=== PATIENT | male | born 1995 | race Caucasian/White ===

== ENCOUNTER 2016-06-15 18:12 | Observation (INO) | payer MEDICAID ==
[2016-06-15 18:35] VITALS: BMI 31.6
[2016-06-15 18:37] LABS: ALL NEG? NO
[2016-06-15 18:38] LABS: AUTOMATED BASOPHIL 0.5 % (0-2); AUTOMATED EOSINOPHIL 0.5 % (0-5); AUTOMATED LYMPH 17.9 % (17-44); AUTOMATED MONOCYTE 4.9 % (3-10); AUTOMATED NEUTROPHIL 76.2 % (45-76)
[2016-06-15 18:47] LABS: BLOOD UREA NITROGEN 8 MG/DL (9-20); CALCIUM 9.6 MG/DL (8.4-10.2); CALCULATED OSMOLALITY 272 MOs/Kg (270-290); CHLORIDE 101 mEq/L (98-107); ETOH-MGDL < 10 mg/dL; GLUCOSE 89 MG/DL (70-99); SODIUM LEVEL 143 mEq/L (137-146); TOTAL PROTEIN 8.1 G/DL (6.3-8.2)
[2016-06-15 18:47] LABS: MDMA* NEG (NEGATIVE); METHAMPHETAMINES NEG (NEGATIVE); OXYCODONE NEG (NEGATIVE)
[2016-06-15 18:52] LABS: LEUKOCYTES/URINE NEG (NEGATIVE); NITRITE/URINE NEG (NEGATIVE); RBC/URINE 0-2 (0-2); URINE OCCULT BLOOD NEG (NEG/TRACE); WBC/URINE 0-2 (0-2)
[2016-06-15] MEDS ORDERED: NS 1,000 ML IV ONE (19:36)
[2016-06-15] MEDS ORDERED: LORAZEPAM 2 MG/ML VIAL IV ONE (19:36)
--- NOTE | 2016-06-15 19:36 | EDPRACDOC ---
- General Information Chief Complaint: Multiple Substance Withdrawal Time Seen by Provider: 06/15/16 19:33 Information Source: Patient Mode of Arrival: Car Home Medications: Home Medications No Home Medications 06/15/16 Allergies/Adverse Reactions: Allergies Allergy/AdvReac Type Severity Reaction Status Date / Time codeine [Codeine] Allergy Severe Hives* Verified 06/15/16 18:54 Penicillins Allergy Severe Hives* Verified 06/15/16 18:54 - History of Present Illness Onset: ongoing HPI: PATIENT INITIALLY PRESENTS WITH COMPLAINT OF WANTING DETOX. NOW PATIENT STATES HE FEELS SUICIDAL AND HAS CONSIDERED KILLING HIMSELF Reason for Seeking Treatment: Self-referral Presents With: Reports: Suicidal Ideation Expresses: Reports: Suicidal Intent Stressors: Reports: Relationships Relevant History: Reports: Depression Medication Compliance: No Tetanus Up To Date?: Yes Able to Care for Self: Yes Able to Control Self: No Associated Signs and Symptoms: Reports: Cocaine, Depression ED Past Medical History - History Reviewed Yes Nurses notes reviewed and agree except as marked Travel Outside of [place] in the Last 3 Months?: No - Patient Medical History Respiratory History: Reports: Asthma (CHILDHOOD) Psychological History: Reports: Depression, Substance Use Disorder Additional Past Medical History: DEPRESSION Surgical History: Reports: Tonsillectomy/Adnoidectomy (ADNOIDS ONLY) - Social Medical History Smoking Status: Heavy tobacco smoker (5 or more cigarettes/day or daily pipe/ cigar) Social History: Reports: Cocaine Use, Marijuana Use, Substance Use Disorder ETOH: Abuse EDM Review of Systems - Review of Systems ROS Negative Except as Marked: Yes All systems reviewed and were negative except as marked Constitutional: No Symptoms Reported. negative: Fever, Chills, Weakness, Fatigue, Loss of Appetite Eyes: No Symptoms Reported. negative: Redness, Blurred Vision, Double Vision, Discharge, Pain, Light Sensitive, Photophobia Ears: No Symptoms Reported. negative: Pain, Hearing Loss, Drainage, Ear Pulling Throat: No Symptoms Reported. negative: Pain, Swelling Nose: No Symptoms Reported. negative: Congestion, Bleeding, Discharge, Injection, Swelling, Deformity, Ecchymosis, Tender, Abrasion, Laceration Mouth: No Symptoms Reported. negative: Pain, Drooling Respiratory: No Symptoms Reported. negative: Cough, Brassy Cough, Barky Cough, Shortness of Breath, Wheezing, Hemoptysis Cardiovascular: No Symptoms Reported. negative: Chest Pain, Palpitations, Syncope, Edema, Orthopnea, PND, Skin Mottling, Cyanosis Gastrointestinal: No Symptoms Reported. negative: Pain, Constipation, Nausea, Vomiting, Diarrhea, Melena, Formula Intolerance Genitourinary: No Symptoms Reported. negative: Dysuria, Hematuria, Frequency, Discharge, Bleeding, Testicular Pain, Neurological: No Symptoms Reported. negative: Headache, Dizziness, Seizure, Numbness, Weakness, Speech Difficulty, Gait Difficulty Musculoskeletal: No Symptoms Reported. negative: Neck, Chestwall, Ribs, Back, Shoulder, Arm, Elbow, Forearm, Wrist, Hand, Pelvis, Hip, Femur, Knee, Leg, Ankle , Foot Integumentary: No Symptoms Reported. negative: Itching, Rash, Bruising, Wound Allergic/Immunologic: No Symptoms Reported. negative: Hives, Itching Hematologic: No Symptoms Reported. negative: Lymphadenopathy, Easy Bruising, Easy Bleeding Endocrine: No Symptoms Reported. negative: Weight Gain, Weight Loss Psychiatric: Depression, Suicidal. negative: Anxiety, Hallucinations, Insomnia - Physical Exam Constitutional: Alert (Awake), No apparent distress Oriented to: Time, Person, Place Last recorded Vital Signs: Last Vital Signs Temp 98.9 F 06/15/16 18:28 Pulse 98 06/15/16 19:29 Resp 20 06/15/16 19:29 BP 145/77 06/15/16 19:29 Pulse Ox 96 06/15/16 19:29 Oxygen Pulse Oxygen Saturation 96 O2 Device Room Air Oxygen Flow Rate Fraction of Inspired Oxygen ( FIO2) - HEENT Head: Normal ( normocephalic) Eye Exam: Normal (PERRL, EOMI, Sclera white) Oropharynx: Normal (Pharynx:Moist without exudate,Gums-no swelling) Tympanic Membrane: Normal ENT EAC: Normal TMJ: Normal Nose: No Symptoms Reported (septum midline) Neck: Normal (FROM, trachea at midline) - Respiratory/Cardiovascular Respiratory: Normal - CTA (BBS clear to auscultation without adventitious sounds ) Cardiovascular: Normal (RRR without murmur, gallop or rub) - GI Auscultation: Normal (NABS) Palpation: Normal (Soft,No rebound or guarding, non distended) Tenderness: Non tender Cardoso's Sign: Negative - Musculoskeletal Back: Normal (Non-Tender) Extremities: Normal (Normal tone, Pulses 2+ No cyanosis or edema, FROM) - Integumentary Skin: Normal, Warm, Dry Lymphatics: Normal (no adenopathy) - Neurologic Memory Impaired: Normal Motor Function: Normal (Normal tone, Pulses 2+ No cyanosis or edema, FROM) Cranial Nerve: Normal (CN II-X11 intact sensation, strength 5/5) Cerebellar: Normal Mood Description: Normal Perception: Normal - Results 06/15/16 18:28 06/15/16 18: WBC 13.0 xk/uL (3.8-10.8) H 06/15/16 18: RBC 5.46 xM/uL (4.70-6.10) 06/15/16 18: Hgb 15.9 g/dL (14.0-18.0) 06/15/16 18: Hct 46.0 % (42-52) 06/15/16 18: MCV 84 fL (80-94) 06/15/16 18: MCH 29.2 pg (27-32) 06/15/16 18: MCHC 34.6 g/dl (33-36) 06/15/16 18: RDW 13.4 % (11.5-14.5) 06/15/16 18: Plt Count 301 xk/uL (130-400) 06/15/16 18: MPV 8.0 fL (7.4-10.4) 06/15/16 18: Neut % (Auto) 76.2 % (45-76) H 06/15/16 18: Lymph % (Auto) 17.9 % (17-44) 06/15/16 18: [place] % (Auto) 4.9 % (3-10) 06/15/16 18: Eos % (Auto) 0.5 % (0-5) 06/15/16 18: Baso % (Auto) 0.5 % (0-2) 06/15/16 18: Absolute Neuts (auto) 9.88 xk/uL (1.7-8.2) H 06/15/16 18: Absolute Lymphs (auto) 2.21 xk/uL (0.65-4.75) 06/15/16 18: Sodium 143 mEq/L (137-146) 06/15/16 18:28 Potassium 3.6 mEq/L (3.5-5.1) 06/15/16 18:28 Chloride 101 mEq/L (98-107) 06/15/16 18:28 Carbon Dioxide 27 mMOL/L (22-33) 06/15/16 18:28 Anion Gap 19 mEq/L (8-16) H 06/15/16 18:28 BUN 8 MG/DL (9-20) L 06/15/16 18:28 Creatinine 0.80 MG/DL (0.66-1.25) 06/15/16 18:28 Estimated GFR (MDRD) > 60 mL/min (>=60) 06/15/16 18:28 Glucose 89 MG/DL (70-99) 06/15/16 18:28 Calculated Osmolality 272 MOs/Kg (270-290) 06/15/16 18:28 Calcium 9.6 MG/DL (8.4-10.2) 06/15/16 18:28 Total Bilirubin 0.7 MG/DL (0.2-1.3) 06/15/16 18:28 AST 28 IU/L (17-59) 06/15/16 18:28 ALT 46 IU/L (21-72) 06/15/16 18:28 Alkaline Phosphatase 98 IU/L (60-400) 06/15/16 18:28 Total Protein 8.1 G/DL (6.3-8.2) 06/15/16 18:28 Albumin 4.4 G/DL (3.5-5.0) 06/15/16 18:28 Urine Color Yellow 06/15/16 18:18 Urine Clarity Clear 06/15/16 18:18 Urine pH 8.0 (5.0-8.0) 06/15/16 18:18 Ur Specific [place] 1.010 (1.003-1.035) 06/15/16 18:18 Urine Protein 1+ (NEG/TRACE) H 06/15/16 18:18 Urine Glucose (UA) Neg (NEGATIVE) 06/15/16 18:18 Urine Ketones 1+ (NEGATIVE) H 06/15/16 18:18 Urine Occult Blood Neg (NEG/TRACE) 06/15/16 18:18 Urine Nitrite Neg (NEGATIVE) 06/15/16 18:18 Urine Bilirubin Neg (NEGATIVE) 06/15/16 18:18 Urine Urobilinogen 2 MG/DL (0-1) H 06/15/16 18:18 Ur Leukocyte Esterase Neg (NEGATIVE) 06/15/16 18:18 Urine RBC 0-2 (0-2) 06/15/16 18:18 Urine WBC 0-2 (0-2) 06/15/16 18:18 Ur Epithelial Cells Occ 06/15/16 18:18 Urine Bacteria Few (NEG/FEW) 06/15/16 18:18 Hyaline Casts 0-2 (0-2) 06/15/16 18:18 Urine Mucus Mod (NEG/OCC) H 06/15/16 18:18 Urine Opiates Screen Neg (NEGATIVE) 06/15/16 18:18 Ur Oxycodone Screen Neg (NEGATIVE) 06/15/16 18:18 Urine Methadone Screen Neg (NEGATIVE) 06/15/16 18:18 Ur Barbiturates Screen Neg (NEGATIVE) 06/15/16 18:18 Ur Tricyclics Screen Neg (NEGATIVE) 06/15/16 18:18 Ur Phencyclidine Scrn Neg (NEGATIVE) 06/15/16 18:18 Ur Amphetamines Screen Neg (NEGATIVE) 06/15/16 18:18 U Methamphetamines Scrn Neg (NEGATIVE) 06/15/16 18:18 Urine MDMA Screen Neg (NEGATIVE) 06/15/16 18:18 U Benzodiazepines Scrn Neg (NEGATIVE) 06/15/16 18:18 Urine Cocaine Screen *positive* (NEGATIVE) H 06/15/16 18:18 Ur THC Screen *positive* (NEGATIVE) H 06/15/16 18:18 Plasma/Serum Ethyl Alc % (<0.01) 06/15/16 18:28 Lab Results 06/15/16 06/15/16 06/15/16 18:28 18:28 18:18 WBC 13.0 H RBC 5.46 Hgb 15.9 Hct 46.0 MCV 84 MCH 29.2 MCHC 34.6 RDW 13.4 Plt Count 301 MPV 8.0 Neut % (Auto) 76.2 H Lymph % (Auto) 17.9 [place] % (Auto) 4.9 Eos % (Auto) 0.5 Baso % (Auto) 0.5 Absolute Neuts (auto) 9.88 H Absolute Lymphs (auto) 2.21 Sodium 143 Potassium 3.6 Chloride 101 Carbon Dioxide 27 Anion Gap 19 H BUN 8 L Creatinine 0.80 Estimated GFR (MDRD) > 60 Glucose 89 Calculated Osmolality 272 Calcium 9.6 Total Bilirubin 0.7 AST 28 ALT 46 Alkaline Phosphatase 98 Total Protein 8.1 Albumin 4.4 Urine Color Yellow Urine Clarity Clear Urine pH 8.0 Ur Specific [place] 1.010 Urine Protein 1+ H Urine Glucose (UA) Neg Urine Ketones 1+ H Urine Occult Blood Neg Urine Nitrite Neg Urine Bilirubin Neg Urine Urobilinogen 2 H Ur Leukocyte Esterase Neg Urine RBC 0-2 Urine WBC 0-2 Ur Epithelial Cells Occ Urine Bacteria Few Hyaline Casts 0-2 Urine Mucus Mod H Urine Opiates Screen Ur Oxycodone Screen Urine Methadone Screen Ur Barbiturates Screen Ur Tricyclics Screen Ur Phencyclidine Scrn Ur Amphetamines Screen U Methamphetamines Scrn Urine MDMA Screen U Benzodiazepines Scrn Urine Cocaine Screen Ur THC Screen Plasma/Serum Ethyl Alc 06/15/16 18:18 WBC RBC Hgb Hct MCV MCH MCHC RDW Plt Count MPV Neut % (Auto) Lymph % (Auto) [place] % (Auto) Eos % (Auto) Baso % (Auto) Absolute Neuts (auto) Absolute Lymphs (auto) Sodium Potassium Chloride Carbon Dioxide Anion Gap BUN Creatinine Estimated GFR (MDRD) Glucose Calculated Osmolality Calcium Total Bilirubin AST ALT Alkaline Phosphatase Total Protein Albumin Urine Color Urine Clarity Urine pH Ur Specific [place] Urine Protein Urine Glucose (UA) Urine Ketones Urine Occult Blood Urine Nitrite Urine Bilirubin Urine Urobilinogen Ur Leukocyte Esterase Urine RBC Urine WBC Ur Epithelial Cells Urine Bacteria Hyaline Casts Urine Mucus Urine Opiates Screen Neg Ur Oxycodone Screen Neg Urine Methadone Screen Neg Ur Barbiturates Screen Neg Ur Tricyclics Screen Neg Ur Phencyclidine Scrn Neg Ur Amphetamines Screen Neg U Methamphetamines Scrn Neg Urine MDMA Screen Neg U Benzodiazepines Scrn Neg Urine Cocaine Screen *positive* H Ur THC Screen *positive* H Plasma/Serum Ethyl Alc - Departure Instructions: Abuse of Alcohol (ED), Alcohol Withdrawal (ED)
[2016-06-15] MEDS ORDERED: TEMAZEPAM 15 MG CAP PO PRN (19:37)
[2016-06-15] MEDS ORDERED: ACETAMINOPHEN 325 MG/TAB TABLET PO PRN (19:37)
[2016-06-15] MEDS ORDERED: IBUPROFEN 400 MG TAB PO PRN (19:37)
[2016-06-15] MEDS ORDERED: LORAZEPAM 1 MG TAB PO PRN (19:37)
[2016-06-15] MEDS ORDERED: ONDANSETRON HCL 4 MG ODT TAB PO PRN (19:37)
[2016-06-15] MEDS ORDERED: MAGNESIUM HYDROXIDE 30 ML BOTTLE PO PRN (19:37)
[2016-06-15] MEDS ORDERED: Docusate Sodium 100 MG CAP PO PRN (19:37)
[2016-06-15] MEDS ORDERED: GUAIFENESIN 200 MG/10 ML UDC PO PRN (19:37)
[2016-06-15 21:51] VITALS: TEMP 98.2
[2016-06-16] MEDS ORDERED: NICOTINE 21 MG PATCH TOP SCH
--- NOTE | 2016-06-16 03:28 | TUDEPART ---
Discussion of OBS Stay: Pt evaluated by Mental Health, cleared for discharge home. Pt denies SI or HI. Disposition: Home Condition: Stable Instructions: Abuse of Alcohol (ED), Alcohol Withdrawal (ED), Polysubstance Abuse (ED) Education/Counseling Given To: Patient Education/Counseling Given Regarding: Diagnosis, Treatment, Follow Up Follow-up/Additional Instructions: Follow up with outpatient resources provided for detox. - Physical Exam Constitutional: Alert (Awake), No apparent distress Oriented to: Time, Person, Place Last recorded Vital Signs: Last Vital Signs Temp 98.2 F 06/15/16 23:30 Pulse 86 06/15/16 23:30 Resp 19 06/15/16 23:30 BP 134/67 06/15/16 23:30 Pulse Ox 97 06/15/16 23:30 Oxygen Pulse Oxygen Saturation 97 O2 Device Room Air Oxygen Flow Rate Fraction of Inspired Oxygen ( FIO2) - HEENT Head: Normal ( normocephalic) Eye Exam: Normal (PERRL, EOMI, Sclera white) Oropharynx: Normal (Pharynx:Moist without exudate,Gums-no swelling) Tympanic Membrane: Normal ENT EAC: Normal TMJ: Normal Nose: No Symptoms Reported (septum midline) - Respiratory/Cardiovascular Respiratory: Normal - CTA (BBS clear to auscultation without adventitious sounds ) Cardiovascular: Normal (RRR without murmur, gallop or rub) - GI Auscultation: Normal (NABS) Palpation: Normal (Soft,No rebound or guarding, non distended) Tenderness: Non tender Cardoso's Sign: Negative - Musculoskeletal Back: Normal (Non-Tender) Extremities: Normal (Normal tone, Pulses 2+ No cyanosis or edema, FROM) - Integumentary Skin: Normal, Warm, Dry Lymphatics: Normal (no adenopathy) - Neurologic Memory Impaired: Normal Motor Function: Normal (Normal tone, Pulses 2+ No cyanosis or edema, FROM) Cranial Nerve: Normal (CN II-X11 intact sensation, strength 5/5) Cerebellar: Normal Mood Description: Normal Perception: Normal
[2016-06-16 09:05] VITALS: BP 150/70; PULSE 74
== END 2016-06-16 09:10 | disposition home or self-care (01) ==
LOC: ED 18:12 → TUOBSINP 19:37 → EDINP 06-16 08:43
PROVIDERS: ADMIT Emergency Medicine; ATTEND Emergency Medicine
DX: F19.10 Other psychoactive substance abuse, uncomplicated (principal); F32.9 Major depressive disorder, single episode, unspecified; F17.200 Nicotine dependence, unspecified, uncomplicated
CPT/HCPCS: 36415; 80053; 80307; 81001; 85025; 86592; 96361; 96374; 99285; G0378; J2060; J3490